=== PATIENT | female | born 1990 | race Hispanic/Latino ===

== ENCOUNTER 2022-02-14 09:15 | Inpatient (IN) | payer SELFPAY ==
[2022-02-14 09:40] VITALS: BMI 36.6
[2022-02-14] MEDS ORDERED: Acetaminophen 325 MG TAB PO PRN (10:23)
[2022-02-14] MEDS ORDERED: HYDROcodone/Acetaminophen 5/325 mg Tablet PO PRN (10:24)
[2022-02-14] MEDS ORDERED: HYDROcodone/Acetaminophen 10/325 mg Tablet PO PRN (10:24)
[2022-02-14] MEDS ORDERED: Morphine 4 MG/ML VIAL SLOW IVP PRN (10:51)
[2022-02-14] MEDS ORDERED: HumaLOG 300 UNITS/3 ML VIAL SC PRN ×2 (11:50)
[2022-02-14] MEDS ORDERED: Dextrose 50% Abboject 50 ML SYRINGE SLOW IVP PRN (11:50)
[2022-02-14] MEDS ORDERED: Dextrose 5% in Water 1,000 ML IV PRN (11:50)
[2022-02-14] MEDS ORDERED: Ondansetron ODT 4 MG TAB PO PRN (11:52)
[2022-02-14] MEDS ORDERED: Ondansetron PF 4 MG/2 ML Vial IVP PRN (11:52)
[2022-02-14] MEDS ORDERED: Ketorolac Tromethamine 30 MG/ML VIAL ONE (12:20)
[2022-02-14] MEDS ORDERED: Hydrocortisone 1% Cream 30 GM TUBE ONE (12:26)
[2022-02-14] MEDS ORDERED: Chlorhexidine Gluconate 15 ML UDCUP SSP ONE (12:26)
[2022-02-14] MEDS ORDERED: Lidocaine 1% w/Epinephrine 1:100K 20 ML VIAL ONE ×2 (12:26→14:25)
[2022-02-14] MEDS ORDERED: Bupivacaine 0.25% 10 ML VIAL ONE (12:26)
[2022-02-14] MEDS ORDERED: HYDROmorphone 0.5 MG/0.5 ML SYRINGE ONE (12:31)
[2022-02-14] MEDS ORDERED: Promethazine HCl 25 MG/ML VIAL ONE (12:31)
[2022-02-14] MEDS ORDERED: AFRIN NASAL MIST 15 ML BOT ONE (12:39)
[2022-02-14] MEDS ORDERED: Dexamethasone 4 mg/ml Vial ONE (14:25)
[2022-02-14] MEDS: Ampicillin/Sulbactam 1.5 GM in Sodium Chloride 0.9% 100 ML IVPB SCH ×3 (16:38→23:01)
[2022-02-14] MEDS: Ketorolac Tromethamine 30 MG/ML VIAL IVP SCH ×3 (16:38→23:01)
[2022-02-14] MEDS: Sodium Chloride 0.9% 1,000 ML IV SCH ×2 (16:39→20:08)
[2022-02-14] MEDS: Famotidine/PF 20 mg/2ml Vial SLOW IVP SCH (20:07)
[2022-02-14] MEDS ORDERED: Chlorhexidine Gluconate 15 ML UDCUP SSP SCH (21:30)
[2022-02-15] MEDS: Ketorolac Tromethamine 30 MG/ML VIAL IVP SCH (04:01)
[2022-02-15] MEDS: Ampicillin/Sulbactam 1.5 GM in Sodium Chloride 0.9% 100 ML IVPB SCH ×3 (04:02→17:29)
[2022-02-15] MEDS: Sodium Chloride 0.9% 1,000 ML IV SCH (04:02)
[2022-02-15 06:39] LABS: #Lymphocytes 1.1 thou/uL (1.20-3.40); #Monocytes 0.5 thou/uL (0.11-0.59); #Neutrophils 7.5 thou/uL (1.40-6.50); %Basophils 0.1 % (0.0-1.0); %Eosinophils 0.2 % (0.0-10.0); %Lymphocytes 11.8 % (21.0-51.0); %Monocytes 5.7 % (0.0-10.0); %Neutrophils 82.2 % (42.0-75.0); Hemoglobin 10.5 g/dL (12.0-16.0); Mean Corpuscular HGB CONC 32.2 g/dL (32.0-36.0); Mean Platelet Volume 6.2 fL (7.4-10.4); Platelet Count 391 thou/uL (130-400); Red Blood Cell (RBC) Count 3.75 mill/uL (4.20-5.40); White Blood Cell (WBC) Count 9.1 thou/uL (4.8-10.8)
[2022-02-15 06:42] LABS: Anion Gap 13 mmol/L (10-20); BUN (Urea Nitrogen) 7 mg/dL (7.0-18.7); Calc. Creatinine Clearance 157 mL/min (70-130); Calcium 8.7 mg/dL (7.8-10.44); Carbon Dioxide 20 mmol/L (22-29); Chloride 108 mmol/L (98-107); Glucose 135 mg/dL (70-105); Potassium 3.7 mmol/L (3.5-5.1); Sodium 137 mmol/L (136-145)
[2022-02-15] MEDS: Famotidine/PF 20 mg/2ml Vial SLOW IVP SCH ×2 (08:15→20:48)
[2022-02-15] MEDS: Chlorhexidine Gluconate 15 ML UDCUP SSP SCH ×2 (08:15→20:48)
[2022-02-15 08:55] LABS: Hemoglobin A1c 5.3 % (4.0-6.0)
[2022-02-16] MEDS: Ampicillin/Sulbactam 1.5 GM in Sodium Chloride 0.9% 100 ML IVPB SCH ×3 (01:04→11:42)
[2022-02-16 06:34] LABS: #Eosinphils 0.1 thou/uL (0.0-0.7); #Monocytes 0.5 thou/uL (0.11-0.59); #Neutrophils 4.2 thou/uL (1.40-6.50); %Basophils 0.1 % (0.0-1.0); %Eosinophils 1.1 % (0.0-10.0); %Monocytes 7.2 % (0.0-10.0); %Neutrophils 61.6 % (42.0-75.0); Hemoglobin 9.4 g/dL (12.0-16.0); Mean Corpuscular HGB CONC 32.9 g/dL (32.0-36.0); Mean Corpuscular Volume 85.1 fL (78.0-98.0); Mean Platelet Volume 6.2 fL (7.4-10.4); Platelet Count 347 thou/uL (130-400); RBC Distribution Width 12.1 % (11.5-14.5); Red Blood Cell (RBC) Count 3.37 mill/uL (4.20-5.40); White Blood Cell (WBC) Count 6.8 thou/uL (4.8-10.8)
[2022-02-16 06:57] LABS: ALT (SGPT) 10 U/L (8-55); AST (SGOT) 11 U/L (5-34); Albumin 3.2 g/dL (3.5-5.0); Alkaline Phosphatase 61 U/L (40-110); Anion Gap 11 mmol/L (10-20); BUN (Urea Nitrogen) 9 mg/dL (7.0-18.7); Bilirubin, Direct 0.1 mg/dL (0.1-0.3); Bilirubin, Total Less than 0.2 mg/dL (0.2-1.2); Calc. Creatinine Clearance 147 mL/min (70-130); Calcium 8.5 mg/dL (7.8-10.44); Carbon Dioxide 26 mmol/L (22-29); Cardiac Risk 7.3 (Less than 4.5); Chloride 107 mmol/L (98-107); Cholesterol 174 mg/dl (< 200 Desired); Glucose 105 mg/dL (70-105); HDL Cholesterol 24 mg/dL (>60 Neg Risk); LDL Cholesterol, Calculated 119 mg/dL; Magnesium 1.9 mg/dL (1.6-2.6); Potassium 3.4 mmol/L (3.5-5.1); Protein, Total 6.1 g/dL (6.0-8.3); Sodium 141 mmol/L (136-145); Triglycerides 155 mg/dL (Less than 150)
[2022-02-16 07:47] VITALS: BP 134/83; TEMP 98.5
[2022-02-16] MEDS: Famotidine/PF 20 mg/2ml Vial SLOW IVP SCH (08:57)
[2022-02-16] MEDS: Chlorhexidine Gluconate 15 ML UDCUP SSP SCH (08:57)
[2022-02-16] MEDS ORDERED: Amoxicillin/Potassium Clav 875 MG TAB PO SCH (11:45)
[2022-02-16] MEDS ORDERED: Potassium Chloride 10 MEQ TAB PO SCH (11:45)
[2022-02-17 11:37] LABS: Fungus Stain Final report (.)
== END 2022-02-16 18:37 | disposition home or self-care (01) | DRG 872 ==
LOC: T4-A 09:15 → OBSVTOIN 11:49
PROVIDERS: ADMIT Internal Medicine; ATTEND Internal Medicine
PROC: 0J910ZZ Drainage of Face Subcutaneous Tissue and Fascia, Open Approach (ICD-10-PCS; principal; 2022-02-14)
PROC: 0CDXXZ0 Extraction of Lower Tooth, Single, External Approach (ICD-10-PCS; 2022-02-14)
PROC: 3E03329 Introduction of Other Anti-infective into Peripheral Vein, Percutaneous Approach (ICD-10-PCS; 2022-02-14)
DX: A41.9 Sepsis, unspecified organism (principal); K12.2 Cellulitis and abscess of mouth; Z20.822 Contact with and (suspected) exposure to COVID-19; D53.9 Nutritional anemia, unspecified; E87.6 Hypokalemia; R13.10 Dysphagia, unspecified; K04.7 Periapical abscess without sinus; K02.9 Dental caries, unspecified; E66.01 Morbid (severe) obesity due to excess calories; Z68.36 Body mass index [BMI] 36.0-36.9, adult; Z28.82 Immunization not carried out because of caregiver refusal; Z90.49 Acquired absence of other specified parts of digestive tract; Z90.710 Acquired absence of both cervix and uterus; Z83.3 Family history of diabetes mellitus; Z80.9 Family history of malignant neoplasm, unspecified
CPT/HCPCS: 36415; 36416; 80048; 80061; 80076; 83036; 83735; 84439; 84443; 85025; 86140; 87070; 87102; 87205; 87206; J0295; J1100; J1170; J1885; J2270; J2550; J3490; J7050; S0020; S0028